=== PATIENT | male | born 1950 | race Two or more races ===

== ENCOUNTER 2024-10-12 15:45 | Inpatient (IN) | payer MEDICARE, SELFPAY ==
[2024-10-12] VITALS (10 sets, daily range): BP systolic 59–98; BP diastolic 28–54; PULSE 38–72; RESP 14–20; TEMP 30.4–33.1; O2SAT 74–100
--- NOTE | 2024-10-12 16:10 | EKG_ITS ---
[facility] Test Date: 2024-10-12 Pat Name: MIKAL MYRICK Department: Room: - Gender: Male Laboratory Administrative Director: : [id number] Requested By: Missy Arechiga Order Number: [id number] Reading MD: Missy Arechiga Measurements Intervals [place] Rate: 39 P: UT: QRS: -30 QRSD: 126 T: 128 QT: 546 QTc: 443 Interpretive Statements ATRIAL FIBRILLATION WITH SLOW VENTRICULAR RESPONSE BORDERLINE LEFT AXIS DEVIATION [QRS AXIS < -20] POSSIBLE LEFT VENTRICULAR HYPERTROPHY [VOLTAGE CRITERIA PLUS LAE OR QRS WIDENING] MODERATE T-WAVE ABNORMALITY, CONSIDER INFERIOR ISCHEMIA [-0.1+ mV T WAVE IN II/aVF] Compared to ECG 07/08/2023 16:43:13 T-wave abnormality now present Possible ischemia now present Sinus rhythm no longer present First degree AV block no longer present ST (T wave) deviation no longer present /store/S0/[id number]/[id number].pdf
--- NOTE | 2024-10-12 16:11 | XR_ITS ---
Examination: AP chest single view TECHNIQUE: AP portable upright chest single view Exam date and time: October 12, 2024 1619 hours Comparison February 13, 2019 INDICATIONS: Sepsis protocol FINDINGS: Extensive bilateral lung opacity consistent with pneumonia Mild enlargement cardiac contour, CABG with prominent vascular congestion Prominent osteopenia IMPRESSION: Extensive bilateral pneumonia At least mild associated heart failure
--- NOTE | 2024-10-12 16:12 | EDNOTE_ITS ---
Upper Respiratory Inf. RME/HPI General Chief Complaint: Weakness Stated Complaint: Possible Pneumonia Time Seen by Provider: 10/12/24 16:09 Arrival date/time: 10/12/24 15:45 RME / HPI RME / HPI Narrative: 74-year-old male patient with significant history of CAD , status post open heart surgery, hypertension, Bhupinder syndrome, CVA, was brought in by family for evaluation regarding failure to thrive. Patient lives alone in a trailer, with the family visited patient was noted to be less active than usual, gibberish, and slightly confused. Patient was also noted to be coughing. In the triage patient is alert and oriented answers questions appropriately. Patient told us that he does not want to go to the hospital, just want to at home . Patient was also noted to be hypothermic, sepsis alert was initiated right away. Per daughter Alicia , patient is DNR. Witnessed by female DEPARTMENT STORE MANAGER Leslie Related Data Home Medications ?Medication ?Instructions ?Recorded ?Confirmed aspirin 81 mg chewable tablet 81 mg PO QDAY 12/28/18 04/19/19 clopidogrel 75 mg tablet 75 mg PO HS 12/28/18 04/19/19 cyclobenzaprine 10 mg tablet 10 mg PO Q8H PRN Spasms 12/28/18 04/19/19 famotidine 20 mg tablet 20 mg PO BID 12/28/18 04/19/19 furosemide 20 mg tablet 20 mg PO QDAY 12/28/18 04/19/19 lisinopril 5 mg tablet 5 mg PO QDAY 12/28/18 04/19/19 metoprolol tartrate 25 mg tablet 12.5 mg PO BID 12/28/18 04/19/19 sulfamethoxazole 400 1 tab PO QDAY 04/19/19 04/19/19 mg-trimethoprim 80 mg tablet Allergies Allergy/AdvReac Type Severity Reaction Status Date / Time codeine AdvReac Intermediate Vomiting Verified 02/13/19 13:42 Review of Systems Review of Systems Narrative Review of Systems: Review of system reviewed and within normal limits except mentioned in HPI ED Exam Narrative Physical exam: VITAL SIGNS: Reviewed. GENERAL APPEARANCE: Alert and oriented x 2, but slow to response, does not follows commands, no acute distress, cachectic, hypothermic HEAD AND FACE: Non-traumatic. ENT: PERRL, pale conjunctiva, eyelid no trauma, Mucous membrane dry NECK: Supple, nontender, no nuchal rigidity. CHEST: No tenderness, no crepitus, no paradoxical movement, no retractions. LUNGS: Symmetric, + rales, no wheezing, + ronchi, no stridor, decreased breath sounds bilaterally. HEART: Regular rate, regular rhythm, no murmur, no gallops. ABDOMEN: Soft, positive bowel sounds, nondistended, no guarding, nontender, no rebound, no masses, RECTAL: Deferred. GENITAL: Deferred. NEUROLOGICAL: Gross motor function intact sensory function intact, Appropriate for age. MUSCULOSKELETAL: low back nontender, full range of motion. EXTREMITIES: Nontender, full range of motion. SKIN: Color pale, dry, no rash, no lacerations, no abrasions, no contusions. LYMPHATICS: Deferred. Course Quality Measures none Orders Category Date Time Status COVID-19 Screening Questionnaire NOW Care 10/12/24 18:39 Active COVID-19 Screening Questionnaire NOW Care 10/12/24 18:46 Active Child Welfare Social Worker STAT Care 10/12/24 16:10 Active Continuous Pulse Oximetry STAT Care 10/12/24 16:10 Completed Decision to Admit X1 Care 10/12/24 18:38 Completed Decision to Admit X1 Care 10/12/24 18:45 Completed EKG (ED ONLY) *Do not use* NOW Care 10/12/24 16:10 Completed In and Out Catheter X1PRN Care 10/12/24 16:10 Completed Initiate Warming Therapy NOW Care 10/12/24 16:10 Active Insert IV NOW Care 10/12/24 16:10 Active NPO STAT Care 10/12/24 16:10 Active Strict Intake and Output Routine Care 10/12/24 16:10 Ordered EKG (ED Only) Stat Exams 10/12/24 16:10 Draft XR chest 1V SEPSIS PROTOCOL Stat Exams 10/12/24 16:11 Completed B-Type Natriuretic Peptide Stat Lab 10/12/24 16:34 Completed Blood Culture (Lab) Stat Lab 10/12/24 16:30 Received CBC Stat Lab 10/12/24 16:34 Completed Comprehensive Metabolic Panel Stat Lab 10/12/24 16:34 Completed LDH (Lactate Dehydrogenase) Stat Lab 10/12/24 16:34 Completed Lactate (Lactic Acid) Stat Lab 10/12/24 16:34 Completed Lipase Stat Lab 10/12/24 16:34 Completed Magnesium Stat Lab 10/12/24 16:34 Completed Partial Thromboplastin Time Stat Lab 10/12/24 16:34 Completed Phosphorous Stat Lab 10/12/24 16:34 Completed Procalcitonin Stat Lab 10/12/24 16:34 Completed Prothrombin Time with INR Stat Lab 10/12/24 16:34 Completed Troponin I Stat Lab 10/12/24 16:34 Completed Urinalysis Stat Lab 10/12/24 19:00 Completed Urine Culture Stat Lab 10/12/24 19:00 Received Azithromycin Inj [Zithromax Inj] 500 mg Med 10/12/24 16:59 Discontinued Sodium Chloride 0.9% 250 ml [Ns] 250 ml IV X1 LORazepam [Ativan Inj] Med 10/12/24 18:33 Discontinued 1 mg IVP X1 ONE Morphine Inj Med 10/12/24 21:24 Discontinued 2 mg IVP X1 ONE Morphine Inj [Morphine Sulf Inj] Med 10/12/24 21:14 Discontinued 2 mg IV X1 ONE Norepinephrine/NS 16mg/250ml [Levophed in NS 16mg/250ml Med 10/12/24 19:09 Active ] 16 mg in 250 ml IV 0.05 mcg/kg/min Piper/Tazo 3.375 gm [Zosyn] Med 10/12/24 16:45 Discontinued 3.375 gm in 50 ml IV X1 Sodium Chloride 0.9% 1000 ml [Ns] 1,000 ml Med 10/12/24 16:11 Discontinued IV 999 mls/hr Sodium Chloride 0.9% 1000 ml [Ns] 1,000 ml Med 10/12/24 19:36 Discontinued IV 999 mls/hr Code Status Routine Oth 10/12/24 19:04 Ordered Oxygen Delivery NOW RT 10/12/24 16:10 Active Vital Signs Vital signs: Vital Signs Temperature 91.5 F L 10/12/24 16:10 Pulse Rate 38 L 10/12/24 16:10 Respiratory Rate 20 10/12/24 16:10 Blood Pressure 98/46 L 10/12/24 16:10 Pulse Oximetry (%) 98 10/12/24 16:10 Oxygen Delivery Method Nasal Cannula 10/12/24 16:10 Oxygen Flow Rate 2 10/12/24 16:10 Upper Respiratory Infection MDM Narrative MDM Narrative:: 74-year-old male patient with significant history of CAD LAD, status post open heart surgery, hypertension, Bhupinder syndrome, CVA, was brought in by family for evaluation regarding failure to thrive. Patient lives alone in a trailer, with the family visited patient was noted to be less active than usual, gibberish, and slightly confused. Patient was also noted to be coughing. In the triage patient is alert and oriented answers questions appropriately. Patient was also noted to be hypothermic, sepsis alert was initiated right away. Per daughter, patient is DNR. Patient was started right away on Bill hugger, warm saline IV fluids, patient was also started on IV Zosyn and IV azithromycin. Patient was noted to be less alert than earlier. And was noted to be hypotensive and hypoxic. Was also noted to be hypothermic. Patient was placed on the BiPAP since patient is DNR patient. Patient was also started on Levophed Family was updated with patient's status. Spoke with Dr. Lazo, ICU MD, and accepted admission. Patient data External records reviewed:: None Clinical information provided by:: patient and family Social determinants that could affect healthcare access:: none Patient has the following chronic illnesses:: Diabetes hypertension, CAD, status post open heart surgery, not on any medication, How is presenting disease/condition affected by chronic disease/condition?: exacerbated by Evaluation data The following diagnostics were reviewed and interpreted by me:: lab results and radiology exam(s) Lab and/or radiology exams considered but not ordered:: None Interpretation Summary: EKG as interpreted by me showed atrial fibrillation, ventricular rate of 39 bpm, QRS duration of 126 MS, no ST segment elevation or depression noted. Laboratory workup came back with leukopenia, WBC count of 2.8 hemoglobin of 9.4, hematocrit of 27.8. Sodium 125 chloride of 90 carbon dioxide of 31.9 BNP of 62 3. Chest x-ray showed extensive bilateral pneumonia. Medications / Prescriptions Medications or Prescriptions considered but not ordered:: None Medication administrations:: Medication Administration History Acetaminophen (Acetaminophen Supp 650 Mg Supp) 650 mg MA Q6HR PRN PRN Reason: FEVER > 101 Stop: 11/11/24 21:51 Artificial Tears (Artificial Tears 225 Drop/15 Ml Btl) 1 drop BOTH EYES Q4HR PRN PRN Reason: Dry eyes Stop: 11/11/24 21:51 Norepinephrine Bitartrate (Levophed In Ns 16mg/250ml) 16 mg in 250 mls @ 2.084 mls/hr IV .Q24H PRN; Protocol PRN Reason: PER protocol Stop: 11/11/24 19:08 Last Titration: 10/12/24 21:53 Dose: 0 mcg/kg/min, 0 mls/hr Documented By: Titration: 10/12/24 21:48 Dose: 0.01 mcg/kg/min, 0.417 mls/hr Documented By: Titration: 10/12/24 21:43 Dose: 0.03 mcg/kg/min, 1.25 mls/hr Documented By: Titration: 10/12/24 21:38 Dose: 0.05 mcg/kg/min, 2.084 mls/hr Documented By: Titration: 10/12/24 21:33 Dose: 0.07 mcg/kg/min, 2.917 mls/hr Documented By: Titration: 10/12/24 21:28 Dose: 0.09 mcg/kg/min, 3.751 mls/hr Documented By: Titration: 10/12/24 21:23 Dose: 0.09 mcg/kg/min, 3.751 mls/hr Documented By: Titration: 10/12/24 21:18 Dose: 0.09 mcg/kg/min, 3.751 mls/hr Documented By: Titration: 10/12/24 21:13 Dose: 0.09 mcg/kg/min, 3.751 mls/hr Documented By: Titration: 10/12/24 21:08 Dose: 0.09 mcg/kg/min, 3.751 mls/hr Documented By: Titration: 10/12/24 21:03 Dose: 0.11 mcg/kg/min, 4.584 mls/hr Documented By: Titration: 10/12/24 20:58 Dose: 0.11 mcg/kg/min, 4.584 mls/hr Documented By: Titration: 10/12/24 20:53 Dose: 0.11 mcg/kg/min, 4.584 mls/hr Documented By: Titration: 10/12/24 20:48 Dose: 0.11 mcg/kg/min, 4.584 mls/hr Documented By: Titration: 10/12/24 20:43 Dose: 0.13 mcg/kg/min, 5.418 mls/hr Documented By: Titration: 10/12/24 20:38 Dose: 0.13 mcg/kg/min, 5.418 mls/hr Documented By: Titration: 10/12/24 20:33 Dose: 0.13 mcg/kg/min, 5.418 mls/hr Documented By: Titration: 10/12/24 20:28 Dose: 0.13 mcg/kg/min, 5.418 mls/hr Documented By: Titration: 10/12/24 20:23 Dose: 0.13 mcg/kg/min, 5.418 mls/hr Documented By: Titration: 10/12/24 20:18 Dose: 0.13 mcg/kg/min, 5.418 mls/hr Documented By: Titration: 10/12/24 20:13 Dose: 0.13 mcg/kg/min, 5.418 mls/hr Documented By: Titration: 10/12/24 20:08 Dose: 0.13 mcg/kg/min, 5.418 mls/hr Documented By: Titration: 10/12/24 20:03 Dose: 0.11 mcg/kg/min, 4.584 mls/hr Documented By: Titration: 10/12/24 19:58 Dose: 0.09 mcg/kg/min, 3.751 mls/hr Documented By: Titration: 10/12/24 19:53 Dose: 0.07 mcg/kg/min, 2.917 mls/hr Documented By: Admin: 10/12/24 19:48 Dose: 0.05 mcg/kg/min, 2.084 mls/hr Documented By: KG Morphine Sulfate (Morphine Sulfate Iv Drip 100mg/100ml) 100 mls @ 1 mls/hr IV .Q24H PRN; Protocol PRN Reason: PAIN (COMFORT CARE) Stop: 10/17/24 21:51 Lorazepam (Lorazepam 2 Mg/Ml Vial) 1 mg IVP Q6HR PRN PRN Reason: ANXIETY Stop: 10/17/24 21:51 Morphine Sulfate (Morphine Sulf Inj 10 Mg/Ml Vial) 2 mg IVP Q30M PRN PRN Reason: PAIN Stop: 10/17/24 21:51 Scopolamine (Scopolamine 1 Mg Tdsy) 1 mg TOP Q3D FERMÍN Stop: 11/11/24 21:59 Last Admin: 10/12/24 22:05 Dose: 1 mg Documented By: KG Discontinued Medications Sodium Chloride (Ns) 1,000 mls @ 999 mls/hr IV .Q1H1M ONE Stop: 10/12/24 17:11 Last Infusion: 10/12/24 19:20 Dose: Infused Documented By: Admin: 10/12/24 18:17 Dose: 999 mls/hr Documented By: TM Piperacillin/Tazobactam/Dextrose (Zosyn) 3.375 gm in 50 mls @ 100 mls/hr IV X1 ONE Stop: 10/12/24 17:14 Last Infusion: 10/12/24 18:17 Dose: Infused Documented By: Admin: 10/12/24 17:44 Dose: 100 mls/hr Documented By: TM Azithromycin 500 mg/ Sodium (Chloride) 250 mls @ 250 mls/hr IV X1 ONE Stop: 10/12/24 17:58 Last Infusion: 10/12/24 19:51 Dose: Infused Documented By: Admin: 10/12/24 17:51 Dose: 250 mls/hr Documented By: TM Sodium Chloride (Ns) 1,000 mls @ 999 mls/hr IV .Q1H1M ONE Stop: 10/12/24 20:36 Last Infusion: 10/12/24 20:42 Dose: Infused Documented By: Admin: 10/12/24 19:36 Dose: 999 mls/hr Documented By: KG Lorazepam (Lorazepam 2 Mg/Ml Vial) 1 mg IVP X1 ONE Stop: 10/12/24 18:34 Last Admin: 10/12/24 20:54 Dose: Not Given Documented By: KG Non-Admin Reason: Other, see note Comments: not apropriate at this time Morphine Sulfate (Morphine Sulf Inj 4 Mg/Ml Vial) 2 mg IV X1 ONE Stop: 10/12/24 21:15 Last Admin: 10/12/24 21:37 Dose: Not Given Documented By: KG Non-Admin Reason: Duplicate Medication on eMAR Morphine Sulfate (Morphine Sulf Inj 10 Mg/Ml Vial) 2 mg IVP X1 ONE Stop: 10/12/24 21:25 Last Admin: 10/12/24 21:29 Dose: 2 mg Documented By: KG IV Zosyn, Zithromax IV, IV fluids x 2 L. Consultations Consultation(s) initiated? (list below): No Diagnosis Upper Respiratory Differential Diagnosis: upper respiratory infection and other (Hypothermia, sepsis, pneumonia) Most likely diagnosis given after review of the tests above:: Sepsis catheter pneumonia, hypothermia Admission Indicated Admission indicated?: indicated Explain why admission is indicated or not indicated:: Patient will be admitted to ICU Admission Request Was there a request for admission?: Yes Admission Attestation Admission request attestation: Discussed case with [] from Hospitalist service regarding admission. Discussed patients ED course, exam findings, labs, and radiology results. The Hospitalist [agrees,declines] to accept the patient for admission. Disposition Plan Disposition Plan: Admit Critical Care Time Critical Care Time Attestation: Critical Care Time The very real possibility of a deterioration of this patient's condition required the highest level of my preparedness for sudden, emergent intervention for the following systems: Cardiac and Metabolic. I provided critical care services, which included medication orders, frequent re-evaluations of the patient's condition and response to treatment, ordering and reviewing test results, and discussing the case with various consultants including: nursing staff, hospitalist, and more. The critical care time associated with the care of this patient was 45 minutes. Discharge Plan Plan Patient Disposition: Admit Acute Care w/in Hospital Disposition Comment: Critical Problem List Clinical Impression: Sepsis, Hypothermia, Pneumonia, DNR no code (do not resuscitate)
[2024-10-12 16:48] LABS: Lactate (Lactic Acid) 0.7 mMol/L (0.4-2.0)
[2024-10-12 16:54] LABS: Basophils % (Auto) 0 % (0-2.5); Eosinophils % (Auto) 1 % (0-10); Hematocrit 27.8 % (41.0-53.0); Hemoglobin 9.4 g/dL (13.5-16.0); Immature Granulocytes % (Auto) 0 % (0-0); Immature Granulocytes Auto 0.01 Thou/mm3 (0.00-0.00); Lymphocytes # (Auto) 0.5 Thou/mm3 (1.0-4.8); Lymphocytes % (Auto) 16 % (10-50); Mean Corpuscular HGB Conc 33.8 g/dl (31.0-37.0); Mean Corpuscular Hemoglobin 28.8 pg (25.0-35.0); Mean Corpuscular Volume 85 fL (80-100); Monocytes # (Auto) 0.3 Thou/mm3 (0.0-0.8); Monocytes % (Auto) 12 % (0-12); Neutrophils % (Auto) 71 % (37-80); Nucleated Red Blood Cell % 0 /100 WBC (0); Platelet Count 204 Thou/mm3 (140-440); Red Blood Count 3.26 Miln/mm3 (4.50-5.90)
[2024-10-12 17:06] LABS: White Blood Count 2.8 Thou/mm3 (3.8-10.6)
[2024-10-12 17:18] LABS: Alanine Aminotransferase 11 U/L (10-49); Albumin, Serum 3.7 gm/dL (3.4-4.8); Albumin/Globulin Ratio 1.3 (1.2-2.2); Alkaline Phosphatase 103 U/L (46-116); Anion Gap 3 (7-16); Aspartate Amino Transferase 16 U/L (0-34); BUN/Creatinine Ratio 43 Ratio (12-20); Bilirubin,Total 0.3 mg/dL (0.3-1.2); Blood Urea Nitrogen 13 mg/dL (9-23); Calcium 9.4 mg/dL (8.3-10.6); Calcium (Corrected) 9.6 mg/dL (8.5-10.1); Carbon Dioxide 31.9 mMol/L (20.0-31.0); Chloride 90 mMol/L (98-107); Creatinine (Component) 0.3 mg/dL (0.6-1.3); Globulin 2.9 gm/dL (2.3-3.5); Glucose 112 mg/dL (74-106); LDH (Lactate Dehydrogenase) 176 U/L (120-246); Lipase 27 U/L (12-53); Magnesium 1.6 mg/dL (1.6-2.6); Osmolality,Calculated 252 (275-295); Phosphorous 3.2 mg/dL (2.4-5.1); Potassium 3.8 mMol/L (3.4-5.1); Procalcitonin 0.06 ng/ml (0.0-0.49); Sodium 125 mMol/L (136-145); Total Protein 6.6 gm/dL (5.7-8.2); Troponin I 0.036 ng/mL (0.0-0.045); eGFR > 60 See Note
[2024-10-12 17:22] LABS: INR 1.2 (0.9-1.3); Partial Thromboplastin Time 33.3 Seconds (22.0-36.0)
[2024-10-12] MEDS: PIPER/TAZO 3.375 GM 3.375 GM/50 ML BAG IV (17:44)
[2024-10-12] MEDS: AZITHROMYCIN INJ 500 MG in SODIUM CHLORIDE 0.9% 250 ML 250 ML 250 MG IV (17:51)
[2024-10-12 17:55] LABS: B-Type Natriuretic Peptide 623 pg/mL (0-100)
[2024-10-12] MEDS: SODIUM CHLORIDE 0.9% 1000 ML 1,000 ML 999 ML IV ×2 (18:17→19:36)
--- NOTE | 2024-10-12 19:02 | PC.NURSE ---
First contact with pt - pt in room 18 wit CHELSI Saleh at bedside; pt appears to be deteriorating and moved promptly to room 1. distribution center supervisorCHELSI carr.
--- NOTE | 2024-10-12 19:08 | PC.NURSE ---
ER provider Missy Arechiga NP confirmed pt is a DNR. RT at the bedside.
--- NOTE | 2024-10-12 19:26 | PC.NURSE ---
Family at the bedside, update on plan of care given.
--- NOTE | 2024-10-12 19:30 | PC.NURSE ---
ASSUMED CARE AT 1715, PT HAS ALBA HENSON ON, CRIME LABORATORY ANALYST UNABLE TO OBTAIN RECTAL TEMP, PT IVAN ON TELE. PT HARD STICK, GOT ONE IV CONNECTED TO FLUID WARMER, PTS IV CAME OUT, ANOTHER IV OBTAINED TO LEFT FA. IN AND OUT CATHETER DONE TO OBTAIN URINE SAMPLE. RECTAL TEMP CONNECTED TO TELE, PTS TEMP 86.7, PROVIDER MADE AWARE. WARMING THERAPY CURRENTLY IN PROGRESS.
[2024-10-12 19:45] LABS: Collection Type, Urine Clean Catch
[2024-10-12] MEDS: Norepinephrine/NS 16mg/250ml 16 MG/250 ML BAG 2.084 MG IV (19:48)
[2024-10-12 20:38] LABS: Bilirubin,Urine Negative (Negative); Blood,Urine Negative (Negative); Clarity,Urine Clear (Clear/Hazy); Color,Urine Yellow (Lt Yel-Yel); Glucose, Urine Negative (Negative); Hyaline Casts,Urine 1 /hpf (0-1); Ketones,Urine Negative (Negative); Leukocyte Esterase,Urine Positive (Negative); Nitrite,Urine Negative (Negative); PH,Urine 5.5 (5.0-7.0); Protein,Urine Trace (Neg - Trace); RBC,Urine 4 /hpf (0-3); Specific Gravity,Urine 1.026 (1.001-1.035); Squamous Epithelial Cell,Urine 1 /hpf (0-5); WBC,Urine 29 /hpf (0-5)
--- NOTE | 2024-10-12 21:15 | PC.NURSE ---
Spoke to Dr. Jeffery via phone, states he will come speak to family members at the bedside. Informed him that family is concerned pt may be in pain - pt unable to self report but he is moaning and grimacing.
--- NOTE | 2024-10-12 21:20 | PC.NURSE ---
Dr. Jeffery at the bedside.
[2024-10-12] MEDS: MORPHINE SULF INJ 10 MG/ML VIAL 2 MG IVP (21:29)
--- NOTE | 2024-10-12 21:32 | PC.NURSE ---
Family has agreed with comfort measures only at this time, witnessed discussion between family and Dr. Jeffery. Verbal order received to begin titrating down levophed to 0. Dr. Inman to come speak with family and put in further orders.
[2024-10-12] MEDS: SCOPOLAMINE 1 MG TDSY TOP (22:05)
--- NOTE | 2024-10-12 22:23 | PC.NURSE ---
At this time, pt stopped breathing. At 2225, pt is in asystole on the monitor with no palpable pulse. Resident called at this time to pronounce patient.
--- NOTE | 2024-10-12 22:23 | PD.RESHP ---
Documentation for date of: 10/12/24 [facility] History of Present Illness History of present illness: A 74-year-old male with a past medical history significant for coronary artery disease (status post-CABG), hypertension, Bhupinder syndrome, CVA , and a history of methamphetamine use, presented to the emergency department accompanied by his family due to worsening mentation, hypothermia, significant weakness, and failure to thrive. The patient lives alone, but his family is actively involved in his care. According to his family, the patient has become increasingly confused and weak over the past few weeks. They also noted a persistent cough. Prior to presentation, the patient was reportedly alert and oriented, answering questions appropriately. However, during my evaluation, the patient was in distress, was in discomfort , unable to fully respond to questions. Despite this, the family described a recent decline in his mental and physical state. The patient expressed to his family that he did not want to go to the hospital and preferred to at home. He has 4 kids , two daughters and one sonwas present , with the daughter Kadi designated as the decision-maker. The family communicated that over the last few months, the patient had been progressively declining. He had refused to follow up with a primary care physician and had repeatedly expressed a desire to be made DNR (do not resuscitate) with no aggressive measures taken when his time came, preferring to at home. Upon presentation to the ED, the patient was found to be severely hypotensive and hypothermic, with a temperature of 90?F. He was tachypneic and hypoxic, with a WBC count of 2.8 and an elevated BNP of 623. Sepsis alert was initiated, and a bear hugger was placed to warm the patient. Antibiotics were administered, and the ICU team was contacted. The patient was started on norepinephrine to address hypotension. Family Discussion and Plan: Following a detailed discussion with the family, and after the ICU team also engaged in a conversation with them, the family and healthcare team came to a consensus. It was decided not to pursue any aggressive measures, in keeping with the patient?s previously expressed wishes and the family?s request. Comfort care measures were initiated, and the focus shifted to ensuring the patient?s comfort and dignity during this phase of his life. The family shared their experience of caring for the their mother, who had a similar end-of-life experience. They wished to replicate this approach for their father, emphasizing the importance of spending quality time with him during his final days. The family?s wishes were respected, and comfort care measures initiated #Distributive shock #Sepsis due to PNA #Hypotension #Hypothermia #Bilateral PNA #Failure to thrive #Respiratory distress #History of coronary artery disease status post CABG #History of hypertension #History of CVA #History of DM #History of methamphetamine abuse Comfort care measures initiated Patient care was discussed with attending physician Dr. Storm Wilson MD PGY-2 I have carefully reviewed this document. Due to imperfections in the voice software, there could be grammatical errors including phonetic/typographic errors. This in no way compromises the medical care the patient is receiving Review of Systems Review of Systems ROS Unobtainable: unobtainable due to medical condition Exam Vital Signs Temp Pulse Resp BP Pulse Ox O2 Del Method O2 Flow Rate 91.4 F L 72 14 59/28 L 74 L Oxy Mask 10 10/12/24 22:05 10/12/24 22:12 10/12/24 22:12 10/12/24 22:12 10/12/24 22:12 10/12/24 22:12 10/12/24 22:12 FiO2 100 10/12/24 19:17 Narrative Exam GENERAL: in acute distress, AxOx0 HEENT: Head AT/ NC. NECK: Supple, no lymphadenopathy, CARDIOVASCULAR:bradicardic RESPIRATORY:tachipnic, BL rhonchi GASTROINTESTINAL: Abdomen soft NEUROLOGICAL: not performed due to medical condition Results: Labs 10/12/24 16:34 10/12/24 16:34 Labs: Short CBC 10/12/24 Range/Units 16:34 WBC 2.8 L (3.8-10.6) Thou/mm3 Hgb 9.4 L (13.5-16.0) g/dL Hct 27.8 L (41.0-53.0) % Plt Count 204 (140-440) Thou/mm3 BMP 10/12/24 16:34 Sodium 125 L Potassium 3.8 Chloride 90 L Carbon Dioxide 31.9 H BUN 13 Creatinine 0.3 L Glucose 112 H Calcium 9.4 Cardiac Enzymes 10/12/24 Range/Units 16:34 Troponin I 0.036 (0.0-0.045) ng/mL Liver Function 10/12/24 Range/Units 16:34 Total Bilirubin 0.3 (0.3-1.2) mg/dL AST 16 (0-34) U/L ALT 11 (10-49) U/L Alkaline Phosphatase 103 (46-116) U/L Albumin 3.7 (3.4-4.8) gm/dL Urine 10/12/24 Range/Units 19:00 Urine Color Yellow (Lt Yel-Yel) Urine Clarity Clear (Clear/Hazy) Urine pH 5.5 (5.0-7.0) Ur Specific [place] 1.026 (1.001-1.035) Urine Protein Trace (Neg - Trace) Urine Glucose (UA) Negative (Negative) Quality Measures Quality Measures none Advance care planning discussed with:: legal surragate Medications Home Medications and Allergies Home Medications ?Medication ?Instructions ?Recorded ?Confirmed ?Type aspirin 81 mg chewable tablet 81 mg PO QDAY 12/28/18 04/19/19 History clopidogrel 75 mg tablet 75 mg PO HS 12/28/18 04/19/19 History cyclobenzaprine 10 mg tablet 10 mg PO Q8H PRN Spasms 12/28/18 04/19/19 History famotidine 20 mg tablet 20 mg PO BID 12/28/18 04/19/19 History furosemide 20 mg tablet 20 mg PO QDAY 12/28/18 04/19/19 History lisinopril 5 mg tablet 5 mg PO QDAY 12/28/18 04/19/19 History metoprolol tartrate 25 mg tablet 12.5 mg PO BID 12/28/18 04/19/19 History sulfamethoxazole 400 1 tab PO QDAY 04/19/19 04/19/19 History mg-trimethoprim 80 mg tablet Allergies Allergy/AdvReac Type Severity Reaction Status Date / Time codeine AdvReac Intermediate Vomiting Verified 02/13/19 13:42 Visit Medications Acetaminophen (Acetaminophen Supp 650 Mg Supp) 650 mg TN Q6HR PRN PRN Reason: FEVER > 101 Stop: 11/11/24 21:51 Artificial Tears (Artificial Tears 225 Drop/15 Ml Btl) 1 drop BOTH EYES Q4HR PRN PRN Reason: Dry eyes Stop: 11/11/24 21:51 Norepinephrine Bitartrate (Levophed In Ns 16mg/250ml) 16 mg in 250 mls @ 2.084 mls/hr IV .Q24H PRN; Protocol PRN Reason: PER protocol Stop: 11/11/24 19:08 Last Titration: 10/12/24 21:53 Dose: 0 mcg/kg/min, 0 mls/hr Morphine Sulfate (Morphine Sulfate Iv Drip 100mg/100ml) 100 mls @ 1 mls/hr IV .Q24H PRN; Protocol PRN Reason: PAIN (COMFORT CARE) Stop: 10/17/24 21:51 Lorazepam (Lorazepam 2 Mg/Ml Vial) 1 mg IVP Q6HR PRN PRN Reason: ANXIETY Stop: 10/17/24 21:51 Morphine Sulfate (Morphine Sulf Inj 10 Mg/Ml Vial) 2 mg IVP Q30M PRN PRN Reason: PAIN Stop: 10/17/24 21:51 Scopolamine (Scopolamine 1 Mg Tdsy) 1 mg TOP Q3D FERMÍN Stop: 11/11/24 21:59 Last Admin: 10/12/24 22:05 Dose: 1 mg Discontinued Medications Sodium Chloride (Ns) 1,000 mls @ 999 mls/hr IV .Q1H1M ONE Stop: 10/12/24 17:11 Last Infusion: 10/12/24 19:20 Dose: Infused Piperacillin/Tazobactam/Dextrose (Zosyn) 3.375 gm in 50 mls @ 100 mls/hr IV X1 ONE Stop: 10/12/24 17:14 Last Infusion: 10/12/24 18:17 Dose: Infused Azithromycin 500 mg/ Sodium (Chloride) 250 mls @ 250 mls/hr IV X1 ONE Stop: 10/12/24 17:58 Last Infusion: 10/12/24 19:51 Dose: Infused Sodium Chloride (Ns) 1,000 mls @ 999 mls/hr IV .Q1H1M ONE Stop: 10/12/24 20:36 Last Infusion: 10/12/24 20:42 Dose: Infused Lorazepam (Lorazepam 2 Mg/Ml Vial) 1 mg IVP X1 ONE Stop: 10/12/24 18:34 Last Admin: 10/12/24 20:54 Dose: Not Given Morphine Sulfate (Morphine Sulf Inj 4 Mg/Ml Vial) 2 mg IV X1 ONE Stop: 10/12/24 21:15 Last Admin: 10/12/24 21:37 Dose: Not Given Morphine Sulfate (Morphine Sulf Inj 10 Mg/Ml Vial) 2 mg IVP X1 ONE Stop: 10/12/24 21:25 Last Admin: 10/12/24 21:29 Dose: 2 mg Assessment & Plan Plan #Distributive shock #Sepsis due to PNA #Hypotension #Hypothermia #Bilateral PNA #Failure to thrive #Respiratory distress #History of coronary artery disease status post CABG #History of hypertension #History of CVA #History of DM #History of methamphetamine abuse Comfort care measures initiated Attending Provider Attestation/Addendum I reviewed labs, imaging, EKG, home medications and prior available records. Face to face evaluation was performed by me. I have personally examined the patient and discussed assessment and plan with the IM team. I reviewed the resident note and agree with the plan with exceptions as below. Patient is a 74-year-old male with multiple comorbidities including heart failure with reduced EF of 40 to 45%, methamphetamine abuse, hypertension, CAD status post CABG, and hypertension, who presented with altered mental status, shortness of breath and hypotension. He was found to have septic shock secondary to bilateral pneumonia. He was started on vasopressors and was planned to be admitted to the ICU, however he previously expressed to his daughter who is the POA that he does not want to come to the hospital or aggressively being treated. He was altered and not able to make any decisions at the time of his presentations. Given his visions and after discussions of goals of care, patient was transitioned to comfort care in the ED. Septic shock secondary to bilateral pneumonia: Organism is unknown. Requiring vasopressors however as the patient is comfort care, will not pursue further diagnostics. Provide oxygen as needed. Morphine for air hunger. Management of pain/nausea as needed. Goals of care discussion/counseling: As above. Started comfort measures. PM update: Patient lost pulse and peacefully. Details are provided in the pronunciation note.
--- NOTE | 2024-10-12 22:33 | PC.NURSE ---
Residents at the bedside state pt still has heart sounds at this time.
--- NOTE | 2024-10-12 22:37 | PC.NURSE ---
Per residents, time of is 2335.
--- NOTE | 2024-10-12 22:42 | PD.DPN ---
Documentation for date of: 10/12/24 Pronouncement Note Date and Time of Date of : 10/12/24 Time of : 22:35 PCOD Preliminary cause of : Cardiopulmonary arrest Summary Additional details: Our team was called to pronounce the of patient Andrés Joiner in Room ED 1 . Upon examination, no active heart or breath sounds were noted after 1 continuous minute of auscultation. Pupils were unresponsive to light/touch/external stimuli. Patient was pronounced on 22:35 at 10/12/2024. Attending Dr. Inman was notified. The patient's family was present & consoled. Patient care was discussed with attending physician Dr.Sette Ping Wilson MD PGY-2 I have carefully reviewed this document. Due to imperfections in the voice software, there could be grammatical errors including phonetic/typographic errors. This in no way compromises the medical care the patient is receiving Additional Data Confirmation of : no pulse, no respirations, no heart sounds and pupils fixed and dilated Family: at bedside Attending/PCP notified?: Yes Attending physician: Mode Inman MD Was code activated?: No Autopsy requested?: No
--- NOTE | 2024-10-12 22:51 | PD.DDS ---
Documentation for date of: 10/12/24 Summary Date and Time Date of admission: 10/12/24 21:49 Summary Hospital Course: A 74-year-old male with a past medical history significant for coronary artery disease (status post-CABG), hypertension, Bhupinder syndrome, CVA , and a history of methamphetamine use, presented to the emergency department accompanied by his family due to worsening mentation, hypothermia, significant weakness, and failure to thrive. The patient lives alone, but his family is actively involved in his care. According to his family, the patient has become increasingly confused and weak over the past few weeks. They also noted a persistent cough. Prior to presentation, the patient was reportedly alert and oriented, answering questions appropriately. However, during my evaluation, the patient was in distress, was in discomfort , unable to fully respond to questions. Despite this, the family described a recent decline in his mental and physical state. The patient expressed to his family that he did not want to go to the hospital and preferred to at home. He has 4 kids , two daughters and one sonwas present , with the daughter Kadi designated as the decision-maker. The family communicated that over the last few months, the patient had been progressively declining. He had refused to follow up with a primary care physician and had repeatedly expressed a desire to be made DNR (do not resuscitate) with no aggressive measures taken when his time came, preferring to at home. Upon presentation to the ED, the patient was found to be severely hypotensive and hypothermic, with a temperature of 90?F. He was tachypneic and hypoxic, with a WBC count of 2.8 and an elevated BNP of 623. Sepsis alert was initiated, and a bear hugger was placed to warm the patient. Antibiotics were administered, and the ICU team was contacted. The patient was started on norepinephrine to address hypotension. Family Discussion and Plan: Following a detailed discussion with the family, and after the ICU team also engaged in a conversation with them, the family and healthcare team came to a consensus. It was decided not to pursue any aggressive measures, in keeping with the patient?s previously expressed wishes and the family?s request. Comfort care measures were initiated, and the focus shifted to ensuring the patient?s comfort and dignity during this phase of his life. The family shared their experience of caring for the their mother, who had a similar end-of-life experience. They wished to replicate this approach for their father, emphasizing the importance of spending quality time with him during his final days. The family?s wishes were respected, and comfort care measures initiated . #Distributive shock #Sepsis due to PNA #Hypotension #Hypothermia #Bilateral PNA #Failure to thrive #Respiratory distress #History of coronary artery disease status post CABG #History of hypertension #History of CVA #History of DM #History of methamphetamine abuse At 22;25 our team was called to pronounce the of patient Andrés Joiner in Room ED 1 . Upon examination, no active heart or breath sounds were noted after 2 continuous minute of auscultation. Pupils were unresponsive to light/touch/external stimuli. Patient was pronounced on 22:35 at 10/12/2024. Attending Dr. Inman was notified. The patient's family was present & consoled. Patient care was discussed with attending physician Dr. Storm Wilson MD PGY-2 I reviewed labs, imaging, EKG, home medications and prior available records. Face to face evaluation was performed by me. I have personally examined the patient and discussed assessment and plan with the IM team. I reviewed the resident note and agree with the plan with exceptions as below. Patient is a 74-year-old male with multiple comorbidities including heart failure with reduced EF of 40 to 45%, methamphetamine abuse, hypertension, CAD status post CABG, and hypertension, who presented with altered mental status, shortness of breath and hypotension. He was found to have septic shock secondary to bilateral pneumonia. He was started on vasopressors and was planned to be admitted to the ICU, however he previously expressed to his daughter who is the POA that he does not want to come to the hospital or aggressively being treated. He was altered and not able to make any decisions at the time of his presentations. Given his visions and after discussions of goals of care, patient was transitioned to comfort care in the ED. Septic shock secondary to bilateral pneumonia: Organism is unknown. Requiring vasopressors however as the patient is comfort care, will not pursue further diagnostics. Provide oxygen as needed. Morphine for air hunger. Management of pain/nausea as needed. Goals of care discussion/counseling: As above. Started comfort measures. PM update: Patient lost pulse and peacefully. Time of is 10:25 PM. Details as above. Cause of is septic shock secondary to bilateral pneumonia of unknown organism. Contributing factors includes acute hypoxic respiratory failure, CHF with reduced EF of 40 to 45%, history of CAD status post CABG, and hypertension. Additional Data Confirmation of as documented by pronouncing clinician: no pulse, no respirations, no heart sounds and pupils fixed and dilated Family: at bedside Attending/PCP notified?: Yes Attending physician: Mode Inman MD Was code activated?: No Autopsy requested?: No Visit Providers Provider Primary care physician: Maxwell Dutta MD Consults: 10/12/24 21:55 Referral Hospice Urgent Comment: Discharge Plan Plan Patient Disposition: Disposition Comment: Critical Prescriptions/Referrals Referrals: Maxwell Dutta MD [Primary Care Provider] - Patient/Caregiver Discharge Instructions Print Language: Upper Sorbian
--- NOTE | 2024-10-12 23:20 | PC.NURSE ---
[facility] called at 2315 to report . Family has chosen [facility] [place].
== END 2024-10-12 22:35 | disposition expired | DRG 871 ==
LOC: SERX 19:34 → SERHOLD 22:15
PROVIDERS: Nurse Practitioner Family; Admitting Provider Student in an Organized Health Care Education/Training Program; Emergency Provider Emergency Medicine; PCP Family Medicine; Visit Provider Student in an Organized Health Care Education/Training Program
DX: A41.9 Sepsis, unspecified organism (principal); J18.9 Pneumonia, unspecified organism; R65.21 Severe sepsis with septic shock; J96.01 Acute respiratory failure with hypoxia; I24.1 Dressler's syndrome; I50.20 Unspecified systolic (congestive) heart failure; R62.7 Adult failure to thrive; I25.10 Atherosclerotic heart disease of native coronary artery without angina pectoris; I11.0 Hypertensive heart disease with heart failure; R57.8 Other shock; R68.0 Hypothermia, not associated with low environmental temperature; I46.9 Cardiac arrest, cause unspecified; E11.9 Type 2 diabetes mellitus without complications; F15.10 Other stimulant abuse, uncomplicated; I48.91 Unspecified atrial fibrillation; Z86.73 Personal history of transient ischemic attack (TIA), and cerebral infarction without residual deficits; Z66 Do not resuscitate; Z95.1 Presence of aortocoronary bypass graft; Z51.5 Encounter for palliative care
CPT/HCPCS: 36415; 71045; 80053; 81001; 83605; 83615; 83690; 83735; 83880; 84100; 84145; 84484; 85025; 85610; 85730; 87040; 87086; 87811; 93005; 94660; 96374; 99291; J0456; J2270; J2543; J3490; J7030; J7050; A9270